=== PATIENT | female | born 1980 | race Caucasian/White ===

== ENCOUNTER → 2017-01-08 15:22 | Outpatient (CLI) | payer BC ==
[2017-01-13 04:14] LABS: OVA + PARASITE EXAM Final report (())
== END | disposition home or self-care (01) ==
LOC: D.LABREF 15:22
PROVIDERS: Family Medicine
DX: R19.7 Diarrhea, unspecified (principal)

== ENCOUNTER 2018-09-08 19:25 | Observation (INO) | payer BC ==
[~2018-09-08] VITALS: Ht 162.6 cm; Wt 57.2 kg
[2018-09-08 20:29] LABS: BASOPHILS 0.1 % (0-2); EOSINOPHILS 0.1 % (0-7); HEMATOCRIT 39.2 % (36.0-48.0); HEMOGLOBIN 13.2 g/dL (12-16); IMMATURE GRANULOCYTES 0.3 % (0-5); LYMPHOCYTES 21.3 % (15-50); MCH 32.8 pg (26.0-34.0); MCHC 33.7 g/dL (31.0-37.0); MCV 97.5 fL (80.0-100.0); MEAN PLATELET VOLUME 9.4 fL (7.4-10.4); MONOCYTES 10.1 % (2-11); NEUTROPHILS 68.1 % (40-80); PLATELET COUNT 239 10x3/uL (130-400); RBC 4.02 10x6/uL (4.00-5.40); RDW 12.2 % (11.5-14.5); WBC 15.8 10x3/uL (4.8-10.8)
[2018-09-08 20:54] LABS: HCG SERUM NEGATIVE (NEGATIVE)
[2018-09-08 21:06] LABS: ALBUMIN 3.9 g/dL (3.4-5.0); ALKALINE PHOSPHATASE 25 U/L (46-116); ALT (SGPT) 26 U/L (10-68); BILIRUBIN - TOTAL 0.37 mg/dL (0.2-1.3); CALC OSMOLALITY 281 mosm/kg (275-300); CALCIUM 8.8 mg/dL (8.5-10.1); CARBON DIOXIDE 29.8 mmol/L (21.0-32.0); CHLORIDE - SERUM 103 mmol/L (98-107); CREATININE - SERUM 0.7 mg/dL (0.6-1.3); GLUCOSE 107 mg/dL (74-106); POTASSIUM - SERUM 3.5 mmol/L (3.5-5.1); PROTEIN - SERUM 7.4 g/dL (6.4-8.2); SODIUM 142 mmol/L (136-145); UREA NITROGEN 10 mg/dL (7-18); eGFR NON AFRICAN AMERICAN > 90 mL/min (90-120)
--- NOTE | 2018-09-08 21:20 | NUR ---
PT TRANSPORTED TO CT VIA W/C WITH REFRIGERATOR ROOM CLERK
--- NOTE | 2018-09-08 23:17 | NUR ---
CALLED REPORT TO SALLIE LAWRENCE AT THIS TIME
[2018-09-08 23:42] VITALS: BP 128/76; BMI 21.6
--- NOTE | 2018-09-09 02:19 | NUR ---
RECIEVED REPORT FROM ER. ARRIVED TO FLOOR IN W/C WITH STAFF AND SPOUSE. TTRANSFERED SELF TO BED. HAS DIFFICULTY SPEAKING AND UNABLE TO EAT OR DRINK AT THIS TIME. C/O PAIN AND STATED MORPHINE DID NOT HELP PAIN ONLY MADE HER SLEEPY. GAVE TORADOL AND PT STATED PAIN MUCH BETTER. SWELLING TO RIGHT NECK AND JAW. IV TO LEFT HAND WITH NS INFUSING AT 125/HR. ON CLEAR LIQUID DIET. DENIES ANY OTHER NEEDS.
--- NOTE | 2018-09-09 03:59 | NUR ---
I have reviewed this patient and I concur with the Shift Assessment completed by the Licensed Practical Nurse today this shift.
[2018-09-09 04:00] VITALS: BP 94/53
[2018-09-09 05:37] LABS: BASOPHILS 0 % (0-2); EOSINOPHILS 0 % (0-7); HEMATOCRIT 34.9 % (36.0-48.0); HEMOGLOBIN 11.8 g/dL (12-16); IMMATURE GRANULOCYTES 0.2 % (0-5); LYMPHOCYTES 6.5 % (15-50); MCH 32.2 pg (26.0-34.0); MCHC 33.8 g/dL (31.0-37.0); MEAN PLATELET VOLUME 9.4 fL (7.4-10.4); MONOCYTES 3.1 % (2-11); NEUTROPHILS 90.2 % (40-80); PLATELET COUNT 231 10x3/uL (130-400); RBC 3.66 10x6/uL (4.00-5.40); RDW 12.1 % (11.5-14.5); WBC 12.2 10x3/uL (4.8-10.8)
[2018-09-09 06:06] LABS: ALKALINE PHOSPHATASE 18 U/L (46-116); ALT (SGPT) 20 U/L (10-68); BILIRUBIN - TOTAL 0.32 mg/dL (0.2-1.3); C-REACTIVE PROTEIN 11.5 mg/dL (0.0-0.9); CALCIUM 7.9 mg/dL (8.5-10.1); CARBON DIOXIDE 24.9 mmol/L (21.0-32.0); CHLORIDE - SERUM 105 mmol/L (98-107); PROTEIN - SERUM 6.6 g/dL (6.4-8.2); SODIUM 140 mmol/L (136-145); UREA NITROGEN 8 mg/dL (7-18)
[2018-09-09 06:11] LABS: CALC OSMOLALITY 280 mosm/kg (275-300); CREATININE - SERUM 0.5 mg/dL (0.6-1.3); GLUCOSE 171 mg/dL (74-106); MCV 95.4 fL (80.0-100.0); eGFR NON AFRICAN AMERICAN > 90 mL/min (90-120)
--- NOTE | 2018-09-09 06:42 | NUR ---
PT STATES SHE FEELS MUCH BETTER AND PAIN US GONE. ALSO, SWELLING IS DOWN. DENIES ANY NEEDS AT THIS TIME.
[2018-09-09 08:00] VITALS: BP 104/65
[2018-09-09 12:12] VITALS: BP 96/45
[2018-09-09 13:08] VITALS: Ht 162.6 cm; Wt 57.2 kg
--- NOTE | 2018-09-09 14:03 | HP ---
PATIENT: NILESH LEZAMA MEDICAL RECORD: [id number] ACCOUNT: [id number] LOCATION:[address] : 80 ADMISSION DATE: 09/08/18 PCP: EMIR MORENO MD HISTORY AND PHYSICAL EXAMINATION DATE OF OBSERVATION: 09/08/2018 CHIEF COMPLAINT: Dysphagia, sore throat. HISTORY OF PRESENT ILLNESS: This is a 38-year-old female who started having sore throat on 09/06/2018. She went to a walk-in clinic the next day. Strep screen there was a negative. She has significant swelling in her throat and she was given a shot of steroids and told to go to the Emergency Department if her symptoms worsened. On 09/08/2018, she states she was really having trouble swallowing. She could not handle her secretions and not too much trouble breathing now. She was brought to the ER where there was marked swelling in the right tonsillar area and the uvula was deviated to the left. A Rapid Strep test was negative. A CT scan soft tissue of the neck did not show any obvious retropharyngeal abscess. She had a very swollen tonsil. The ER MD assigned her to observation and wanted her seen by ENT. PAST MEDICAL HISTORY: Unremarkable. PAST SURGICAL HISTORY: None. CURRENT MEDICATIONS: None. ALLERGIES: SULFA. HABITS: No tobacco, alcohol or drugs. SOCIAL HISTORY: She is . 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 FAMILY HISTORY: Noncontributory. REVIEW OF SYSTEMS: GENERAL: No major weight changes. HEENT: No particular sinus or allergy problems. RESPIRATORY: No asthma or emphysema. CARDIAC: No chest pain, palpitations, or history of heart disease. GASTROINTESTINAL: No diarrhea, constipation, or loose stools. GENITOURINARY: No significant problems there. MUSCULOSKELETAL: No significant problems. NEUROLOGIC: No migraines or seizures. PSYCHIATRIC: No depression or melancholia. PHYSICAL EXAMINATION: VITAL SIGNS: Temperature 98.4, pulse 83, respirations 18, blood pressure 104/65, O2 sat 95%. GENERAL: She is awake and alert. She states she is feeling some better. She is still not able to swallow very well at all. She is able to handle secretions now. SKIN: Without rash. HEENT: TMs are clear. Nose without drainage. Oropharynx with significant HISTORY AND PHYSICAL [id number] LEZAMA,NILESH swelling in the right tonsillar area. No exudate is seen. Uvula is deviated to the left. NECK: Some generalized tenderness in the right submandibular area. She states the swelling there has gone down. HEART: Regular rate and rhythm. LUNGS: Clear. ABDOMEN: Soft. LABORATORY DATA: CBC with a white count of 15,800, hemoglobin 13.2, hematocrit 39.2. Comprehensive metabolic panel is all normal. C-reactive protein is elevated at 10.3. Beta hCG is negative. Rapid Strep is negative and the preliminary report, had a CT soft tissues of the neck showing no abscess formation at all. ASSESSMENT: Dysphagia due to acute tonsillitis. PLAN: IV fluids. IV steroids. The patient states Toradol injection helped much more than morphine did. Consult to Dr. Can. Other tests and procedures as warranted. TRANSINT:[id number] Voice Confirmation ID: [id number] DOCUMENT ID: [id number] EMIR MORENO MD at 1403 CC: [id number] DICTATION DATE: 09/09/18899 MEDICATION NURSE: 09/09/18 0953 ADM IN [facility] [address] [place] [address]
[2018-09-09 16:24] VITALS: BP 98/57
--- NOTE | 2018-09-09 19:45 | NUR ---
EVENING ROUND COMPLETED. VSS, WITH BP OF 100/58. PT STATES THE PAIN IN HER NECK IS A LOT BETTER SINCE SHE STARTED TAKING TORADOL. PT IS AAOX, NO S/S OF RESP DISTRESS. SPOUSE AT BEDSIDE. PT DENIES ANY FURTHER NEEDS AT THIS TIME. WILL CPOC. CL WITHIN REACH, BED IN LOW, SR UP X2.
[2018-09-09 20:00] VITALS: BP 100/58
--- NOTE | 2018-09-10 02:29 | NUR ---
PT C/O NECK PAIN A 09/02.TORADOL 0.5ML OF 30MG/ML GIVEN @ THIS TIME. WILL CTM. CL WITHIN REACH.
[2018-09-10 04:00] VITALS: BP 110/60
[2018-09-10 08:15] VITALS: BP 107/67
[2018-09-10] MEDS ORDERED: DIFLUCAN100 MG PO (08:57)
[2018-09-10] MEDS ORDERED: MEDROL DOSE PACK4 MG PO (08:57)
[2018-09-10] MEDS ORDERED: CLEOCIN HCL300 MG PO (08:58)
[2018-09-10] MEDS ORDERED: HYDROCODON-ACE1 EA10 PO (08:58)
--- NOTE | 2018-09-10 12:21 | NUR ---
ALERT AND ORIENTED X4. SITTING UP IN BED. WRITTEN PRESCRIPTION FOR [facility] PROVIDED. DC LT HAND IV TIP INTACT. DISCHARGE INSTRUCTIONS GIVEN VERBALLY AND WRITTEN. DISCHARGE PAPERS SIGNED ON CHART. ESCORT TO RIDE VIA WHEELCHAIR. REMAINS FREE FROM INJURY.
--- NOTE | 2018-09-11 09:08 | MORECARE ---
CASE MANAGEMENT DISCHARGE SUMMARY PATIENT: NILESH LEZAMA UNIT: [id number] ADM DATE: 09/08/18 AGE: 38 : 80 SEX: F ROOM/BED: D.8100 AUTHOR: IDA UP PHYSICIAN: REFERRING PHYSICIAN: EMIR MORENO MD DATE OF SERVICE: 09/11/18 Discharge Plan Patient Name: NILESH LEZAMA Facility: [facility]:[place] : 1980 Planned Disposition: Home Anticipated Discharge Date: 09/10/18 Discharge Date: 09/10/2018 Expected LOS: 2 Initial Reviewer: [email or web address] Initial Review Date: 09/11/2018 Generated: 09/11/18 10:08 am Patient Name: NILESH LEZAMA Page [id number] at 0908 All edits/amendments must be made on the electronic document DICTATION DATE: 09/11/18907 RAILROAD COOK: RHODA 09/11/18907 RPT#: [id number] DC DATE:09/10/18 STATUS: DIS IN [facility] [address] [place] [address] END OF REPORT
--- NOTE | 2018-09-11 12:57 | CN ---
PATIENT NAME:NILESH LEZAMA MEDICAL RECORD: [id number] : 80 LOCATION:[address] ADMIT DATE: 09/08/18 ACCOUNT: [id number] CONSULTING PHYSICIAN: HUGO MARLOW MD REFERRING PHYSICIAN: EMIR MORENO MD DATE OF CONSULTATION: 09/09/2018 HISTORY OF PRESENT ILLNESS: Ms. Lezama is a 38-year-old female. She was admitted yesterday with pharyngitis and throat pain, dysphagia. She started having a sore throat on Sunday, 3 days ago now. She said she had a sore throat, could not swallow, almost could not talk, but she was admitted yesterday, started on IV antibiotics and steroids. She says she is doing a lot better now, able to talk, and able to swallow some. She has a history of some recurrent sore throat, sometimes strep in the past as well. She had a white count of 16 on admission, it was 12 this morning. She had a CT of the neck that was negative for any abscess. PAST MEDICAL HISTORY: She is otherwise pretty healthy. ALLERGIES: SULFA. PHYSICAL EXAMINATION: GENERAL: She is awake, alert. She is talking. She is a good historian. Her voice is normal. FACE: Normal, symmetric, no lesions. EYES: Sclerae and conjunctivae are normal. NOSE: No masses, polyps or drainage. ORAL CAVITY AND OROPHARYNX: She does not have any trismus. Tongue protrudes in the midline. Pharynx consistent with some mild pharyngitis, really no significant asymmetry there. The right tonsil is the one she says is sore and it is a little bit to palpation, but not particularly abnormal. NECK: She has got some mild tender adenopathy in the right jugulodigastric area. IMPRESSION: Pharyngitis. She is responding well to IV antibiotics and steroids pretty quickly. I would expect she would be okay to be discharged on p.o. antibiotics in the morning. TRANSINT:[id number] Voice Confirmation ID: [id number] DOCUMENT ID: [id number] HUGO MARLOW MD at 1257 CC: [id number] DICTATION DATE: 09/09/18 1039 PODIATRIC MEDICINE PROFESSOR: 09/09/18 1057 DIS IN 09/10/18 [facility] [address] [place] [address]
== END 2018-09-10 12:29 | disposition home or self-care (01) ==
LOC: D.ER 19:25 → D.M2 22:27 → OBSVTIME 22:27 → D.M2 22:27
PROVIDERS: Family Medicine; ADMIT Family Medicine; ATTEND Family Medicine
DX: J03.90 Acute tonsillitis, unspecified (principal); R13.10 Dysphagia, unspecified

== ENCOUNTER → 2018-09-25 11:39 | Outpatient (CLI) | payer BC ==
[2018-09-09 13:08] VITALS: BMI 21.6
[~2018-09-25 11:39] MED LIST: CLEOCIN HCL300 MG PO; DIFLUCAN100 MG PO; HYDROCODON-ACE1 EA10 PO; MEDROL DOSE PACK4 MG PO
== END | disposition home or self-care (01) ==
LOC: D.LAB 11:39
PROVIDERS: ATTEND Family Medicine
DX: R19.7 Diarrhea, unspecified (principal)

== ENCOUNTER → 2018-11-12 15:31 | Outpatient (CLI) | payer BC ==
[2018-09-09 13:08] VITALS: BMI 21.6
== END | disposition home or self-care (01) ==
LOC: D.LAB 15:31
PROVIDERS: ATTEND Family Medicine
DX: A04.72 Enterocolitis due to Clostridium difficile, not specified as recurrent (principal)